=== PATIENT | male | born 1950 | race Hispanic/Latino ===

== ENCOUNTER 2017-04-01 12:02 | Emergency (ER) | payer OTHER, BC ==
[2017-04-01 12:08] VITALS: O2SAT 99
--- NOTE | 2017-04-01 12:34 | C.PDOC ---
History Of Present Illness 67 y/o morbidly obese male, with hx of htn and cardiac arrhythmia, with aicd/ pacemaker, on xarelto, c/o right knee pain s/p slip and fall going up some steps. pt denies hitting head, no loc, no neck pain. pt denies any cp, sob, dizziness prior to or after fall. pt sts knee hurts when trying to bear weight, non tender when sitting. denies any lower extremity weakness, numbness or tingling. - HPI Time Seen by Provider: 04/01/17 12:16 Chief Complaint (Nursing): Trauma History Per: Patient History/Exam Limitations: no limitations Onset/Duration Of Symptoms: Mins Injury Occurred (Timing): Just Before Arrival Location Of Injury: Right: Knee Past Medical History Reviewed: Historical Data, Nursing Documentation, Vital Signs Vital Signs: Last Vital Signs Temp 97.2 F L 04/01/17 12:05 Pulse 76 04/01/17 12:05 Resp 20 04/01/17 12:05 BP 159/108 H 04/01/17 12:05 Pulse Ox 99 04/01/17 14:17 - Medical History PMH: Cardia Arrhythmia, HTN Other Surgeries: right hip Family History: States: Unknown Family Hx - Social History Hx Alcohol Use: No Hx Substance Use: No Review Of Systems Cardiovascular: Negative for: Chest Pain, Light Headedness Respiratory: Negative for: Shortness of Breath Gastrointestinal: Negative for: Abdominal Pain Musculoskeletal: Positive for: Leg Pain (knee pain). Negative for: Neck Pain Neurological: Negative for: Weakness, Numbness, Headache, Dizziness, Other ( loss of consciousness) Physical Exam - Physical Exam Additional Physical Exam Comments: Constitutional: morbidly obese male in no acute distress. Head: Normocephalic. Atraumatic. Eyes: PERRL. EOMI. Neck: Supple. No midline vertebral tenderness. Back: No midline vertebral tenderness Musculoskeletal: FROM of shoulder and hips. Left knee normal rom. Right knee with mild tenderness distal to patella, with mild decrease in full extension. no swelling, calf tenderness or pedal edema. DP pulses 2+ bilaterally. . Neurologic: Alert, no focal deficits. Cranial nerves intact. Normal strength and sensation ED Course And Treatment O2 Sat by Pulse Oximetry: 99 Medical Decision Making Medical Decision Making: Plan: -- XR Right knee -- Tylenol 975 mg PO 202 pm no fx noted on xray. knee brace applied, pt still with pain with weight bearing. crutches ordered. pt has used crutches before when he had hip surgery. 216 pm pt more comfortable with limited weight bearing and crutches, will d/c with pmd and ortho f/u Disposition Counseled Patient/Family Regarding: Studies Performed, Diagnosis, Need For Followup, Rx Given - Disposition Referrals: Steven De Souza MD [Staff Provider] - Disposition: HOME/ ROUTINE Disposition Time: 14:18 Condition: IMPROVED Additional Instructions: Please wear knee brace and use crutches for support, Tylenol for pain. Follow up with your orthopedist or with Dr Fried. Return to ER for any worsening symptoms. Prescriptions: Acetaminophen [Tylenol 325mg tab] 650 mg PO Q6 #30 tab Forms: [employer] ([employer]), General Discharge Instructions - Clinical Impression Clinical Impression: Injury of knee, right - PA / [employer] / Resident Statement MD/DO has reviewed & agrees with the documentation as recorded. - Scribe Statement The provider has reviewed the documentation as recorded by the Antonietta Victoria Provider Attestation: All medical record entries made by the Antonietta were at my direction and personally dictated by me. I have reviewed the chart and agree that the record accurately reflects my personal performance of the history, physical exam, medical decision making, and the department course for this patient. I have also personally directed, reviewed, and agree with the discharge instructions and disposition.
[2017-04-01 14:25] VITALS: BP 166/96; PULSE 62; RESP 18; TEMP 97.9
--- NOTE | 2017-04-01 15:57 | RAD ---
PROCEDURE: Right Knee Radiographs. HISTORY: s/p fall onto knee, pain distal knee COMPARISON: None. FINDINGS: BONES: Anterior superior patellar spurring - blending quadriceps insertional enthesophyte. Minimal tibial spine spurring. No fracture. JOINTS: Minimal osteoarthritis. JOINT EFFUSION: Possible small suprapatellar OTHER FINDINGS: None. IMPRESSION: No fracture or dislocation Possible small suprapatellar effusion
== END 2017-04-01 14:30 | disposition home or self-care (01) ==
LOC: C.ER 12:02
DX: S89.91XA Unspecified injury of right lower leg, initial encounter (principal); W01.0XXA Fall on same level from slipping, tripping and stumbling without subsequent striking against object, initial encounter; I10 Essential (primary) hypertension; Z95.0 Presence of cardiac pacemaker; E66.01 Morbid (severe) obesity due to excess calories